=== PATIENT | female | born 1945 | race Caucasian/White ===

== ENCOUNTER → 2016-08-19 | Outpatient (CLI) | payer MEDICARE, BC ==
[~2016-08-19] MED LIST: ALENDRONATE SOD70 M1 PO; ATARAX; CALCIUM + D 6001 TA1 PO; CALCIUM 600600 M2 PO; CARDI-OMEGA1000 MG PO; CEFTIN250 M1 PO; FOSAMAX PO; LISINOPRIL20 MG PO; MULTIPLE VITAMI1 CAP PO; PREMARIN .3MG0.3 MG; PREMARIN0.3 MG PO; SIMVASTATIN20 MG PO; VICODIN 5/5001 UDTAB PO; ZESTORETIC 12.51 TA1 PO; ZOCOR 20MG20 MG PO; ZOFRAN 4MG T4 MG/TAB PO
== END ==
LOC: MC.RAD 13:31
DX: Z12.31 Encounter for screening mammogram for malignant neoplasm of breast (principal); D24.2 Benign neoplasm of left breast; D24.1 Benign neoplasm of right breast

== ENCOUNTER → 2017-12-01 | Outpatient (CLI) | payer MEDICARE, BC | LOC: MC.RAD 09:08 | DX: Z12.31 Encounter for screening mammogram for malignant neoplasm of breast (principal) ==

== ENCOUNTER → 2018-11-13 | Outpatient (CLI) | payer MEDICARE, BC | LOC: MC.RAD 11:22 | DX: Z12.31 Encounter for screening mammogram for malignant neoplasm of breast (principal) ==

== ENCOUNTER → 2019-06-21 | Outpatient (CLI) | payer MEDICARE, BC | LOC: COL.RAD 08:08 | DX: K42.9 Umbilical hernia without obstruction or gangrene (principal); Z90.710 Acquired absence of both cervix and uterus | CPT/HCPCS: Q9967 ==

== ENCOUNTER → 2020-01-23 | Outpatient (CLI) | payer MEDICARE, BC | LOC: MC.RAD 08:22 | DX: Z12.31 Encounter for screening mammogram for malignant neoplasm of breast (principal) ==

== ENCOUNTER → 2021-12-24 | Outpatient (CLI) | payer MEDICARE, BC | LOC: MC.RAD 15:16 | DX: Z12.31 Encounter for screening mammogram for malignant neoplasm of breast (principal) ==

== ENCOUNTER → 2022-04-15 | Outpatient (CLI) | payer MEDICARE, BC | LOC: MHCPAIN 15:34 | DX: M53.3 Sacrococcygeal disorders, not elsewhere classified (principal); M47.817 Spondylosis without myelopathy or radiculopathy, lumbosacral region | CPT/HCPCS: G0260; J1040; Q9967 ==

== ENCOUNTER → 2022-07-09 | Outpatient (CLI) | payer MEDICARE, BC | LOC: COL.CARD 09:32 | DX: I10 Essential (primary) hypertension (principal) ==

== ENCOUNTER → 2022-07-21 | Outpatient (CLI) | payer MEDICARE, BC | LOC: MHCPAIN 13:34 | DX: M54.16 Radiculopathy, lumbar region (principal); M41.86 Other forms of scoliosis, lumbar region; M53.3 Sacrococcygeal disorders, not elsewhere classified | CPT/HCPCS: G0463 ==